=== PATIENT | female | born 1935 | race Caucasian/White ===

== ENCOUNTER → 2016-11-24 | Outpatient (CLI) | payer BC | END | disposition home or self-care (01) | LOC: C.LAB1850 12:16 | PROVIDERS: ATTEND Family Medicine | DX: R53.83 Other fatigue (principal); E78.5 Hyperlipidemia, unspecified; L29.9 Pruritus, unspecified; E55.9 Vitamin D deficiency, unspecified ==

== ENCOUNTER → 2017-02-23 | Outpatient (CLI) | payer BC | END | disposition home or self-care (01) | LOC: C.LAB 10:26 | PROVIDERS: ATTEND Nutritionist | DX: R53.81 Other malaise (principal) ==

== ENCOUNTER → 2017-04-14 | Outpatient (CLI) | payer BC ==
--- NOTE | 2017-04-15 13:41 | MAMMOGRAPHY REPORT ---
BILATERAL DIGITAL SCREENING MAMMOGRAM TOMOSYNTHESIS WITH CAD: 04/14/2017 CLINICAL HISTORY: Routine screening. TECHNIQUE: Breast tomosynthesis in addition to standard 2D mammography was performed. Current study was also evaluated with a Computer Aided Detection (CAD) system. COMPARISON: Comparison is made to exams dated: 10/24/2015 mammogram, 11/23/2014 mammogram, 11/22/2013 m ammogram, 11/19/2012 mammogram, 01/16/2012 mammogram, and 01/14/2011 mammogram - [facility] enter. BREAST COMPOSITION: The tissue of both breasts is heterogeneously dense, which may obscure small mas ses. FINDINGS: There are moderate vascular calcifications and scattered benign-appearing coarse and round microcalcifications in the breasts. Stable intramammary lymph nodes in the right upper outer quadran t. No new suspicious mass, architectural distortion or cluster of microcalcifications is seen. IMPRESSION: ACR BI-RADS CATEGORY 1: NEGATIVE There is no mammographic evidence of malignancy. A 1 year screening mammogram is recommended. The pa tient will receive written notification of the results. Approximately 10% of breast cancers are not detected with mammography. A negative mammographic report should not delay biopsy if a clinically suggestive mass is present. Adalgisa Gregorio M.D. ay/:04/14/2017 17:45:06 Carpet Weaver: Rashmi COREY(Theresa)(M), [facility] letter sent: Normal 1/2 BI-RADS Code: ACR BI-RADS Category 1: Negative
== END | disposition home or self-care (01) ==
LOC: C.MAMM 09:30
PROVIDERS: ATTEND Family Medicine
DX: Z12.31 Encounter for screening mammogram for malignant neoplasm of breast (principal)

== ENCOUNTER → 2017-05-25 | Outpatient (CLI) | payer BC ==
[2017-05-25 12:27] LABS: CHOLESTEROL/HDL RATIO 1.9
== END | disposition home or self-care (01) ==
LOC: C.LAB1850 10:41
PROVIDERS: ATTEND Physician Assistant
DX: I65.29 Occlusion and stenosis of unspecified carotid artery (principal); E78.5 Hyperlipidemia, unspecified

== ENCOUNTER → 2017-05-25 | Outpatient (CLI) | payer BC ==
--- NOTE | 2017-05-25 14:46 | MAMMOGRAPHY REPORT ---
ULTRASOUND OF BOTH BREASTS: 05/25/2017 CLINICAL HISTORY: 81-year-old woman presents for whole breast screening ultrasound given the personal history of dense breasts and family history of breast cancer = niece. COMPARISON: Comparison is made to exams dated: 04/14/2017 mammogram, 10/24/2015 ultrasound, 10/24/2015 mammogram, 03/06/2015 ultrasound, 11/23/2014 mammogram, and 01/11/2014 ultrasound - [facility]. FINDINGS: Real-time high-resolution sonographic evaluation was performed throughout each breast and both axillae. Morphologically normal lymph nodes are seen in both the right and left axilla, without evidence of suspicious adenopathy. The breast parenchymal echotexture is heterogeneousdense. Throughout the left breast, there is no e vidence of a discrete solid or cystic mass. Normal fibroglandular tissue and a calcified blood vesse l are identified. Within the right breast 6:00 axis, 1 cm from the nipple, there is a tiny oval para llel circumscribed anechoic cyst measuring 2.6 x 1.9 x 1.9 mm. In the 10:00 right breast, 1 cm from the nipple, an oval parallel circumscribed hypoechoic solid versus cystic mass versus focal duct ecta gabe is identified measuring 3.8 x 1.8 x 3.0 mm. This has a benign sonographic appearance, but a six- month follow-up targeted ultrasound is recommended to ensure stability. No other discrete solid or c ystic mass identified in the right breast. IMPRESSION: ACR-BI-RADS CATEGORY 3: PROBABLY BENIGN - FOLLOW-UP RECOMMENDED 1. There is a benign-appearing 3.8 mm circumscribed oval parallel solid versus cystic mass versus fo valdo duct ectasia in the 10:00 right breast, 1 cm from the nipple, for which a short interval follow-u p targeted ultrasound is recommended to ensure stability in 6 months. Right unilateral mammography c ould also be performed at that time in case there is an interval mammographic change. 2. No focal mass or sonographic evidence of malignancy in the left breast. 3. No suspicious right or left axillary lymphadenopathy. These results and recommendations were discussed with the patient at the time of the exam. Adalgisa Gregorio M.D. ay/:05/25/2017 10:26:11 Epoxy Fabrication Supervisor: Dr. Adalgisa Gregorio, [facility] letter sent: Follow Up Recommended 3 BI-RADS Code: ACR-BI-RADS Category 3: Probably Benign
== END | disposition home or self-care (01) ==
LOC: C.MAMM 09:23
PROVIDERS: ATTEND Obstetrics & Gynecology
DX: N63.10 Unspecified lump in the right breast, unspecified quadrant (principal)

== ENCOUNTER → 2017-07-21 | Outpatient (CLI) | payer BC ==
--- NOTE | 2017-07-21 11:14 | Discharge Instructions ---
Discharge Instructions Procedure Procedure Date: Jul 21, 2017. Reason for visit: Right Breast Mass. Discharge Discharge Date: Jul 21, 2017. Discharge Diagnosis: post right 10:00 breast ultrasound guided core biopsy Instructions Activity Recommendations: Additional Limitations (see below) Return to School/Work: no limitations Recommended Home Diet: No Limitations Provider Instructions: ACTIVITY RECOMMENDATIONS: * No lifting, pushing, pulling or exercising the affected side for three days. RETURN TO SCHOOL/WORK: * You may return to work/school after the procedure, but do not perform any strenuous activities for 24 to 48 hours. MEDICATIONS: * Tylenol (two 325 mg) every four to six hours if needed for mild pain (if not allergic to Tylenol). DIET: * Resume previous diet. SPECIAL CARE INSTRUCTIONS: * Keep biopsy site dry for 24 hours. May shower after 24 hours, but do not soak (bathe) incision. * May remove Tegaderm (plastic patch) tomorrow AFTER showering. * Leave the steri-strips on for one week. Allow the steri-strips to fall off by themselves. If not off after one week, you may remove them. You may place a Bandaid crosswise over the strips, if desired. * Apply ice 10 minutes on and 10 minutes off as needed. * Wear a bra at bedtime to sleep more comfortably for 2-3 days. * Your referring physician should have the results after approximately 5 to 7 business days. * Call for unusual bleeding, fever, drainage, etc or if you have any questions call [phone] during normal business hours or after hours call Dr Gregorio, . FOLLOW UP VISIT: Follow-up with Referring Physician as scheduled. Allergies Coded Allergies: ALLERGY2 (Verified Allergy, Unknown, 03/19/15) Ramsey Toribio Recommendations: Call your doctor if: * Temperature above 101 degrees * Pain not relieved by pain medicine ordered * There is increased drainage or redness from any incision * You have any unanswered questions or concerns. Your Doctors Instructions noted above were prepared by provider Adalgisa Gregorio. Patient Signature Section: Patient Instructions Signature Page Kristine Hollis Patient (or Guardian) Signature/Date: I have read and understand the instructions given to me by my caregivers. Caregiver/RN/Doctor Signature/Date: The above-named patient and/or guardian has received patient instructions on this date. + Original Patient Signature Page (only) stays with chart. Please make copy for patient.
--- NOTE | 2017-07-21 14:30 | MAMMOGRAPHY REPORT ---
ULTRASOUND GUIDED BIOPSY RIGHT BREAST: 07/21/2017 CLINICAL HISTORY: 82-year-old woman presents for biopsy of a small circumscribed parallel hypoechoic 3.8 mm mass in the 10:00 right breast identified on whole breast screening ultrasound. COMPARISON: Comparison is made to exams dated: 05/25/2017 ultrasound, 04/14/2017 mammogram, 6 ultrasound, 10/24/2015 mammogram, 03/06/2015 ultrasound, and 11/23/2014 mammogram - [facility]. PATIENT CONSENT: The procedure, risks and benefits were discussed with the patient and informed conse nt was obtained both verbally and in writing. Specific risks to this procedure include: bleeding, in fection, puncture of adjacent structure, nontarget biopsy, sampling error, pain, metal allergy and me dication reaction. PROCEDURE DESCRIPTION: A time out was performed and the right breast was agreed as the site of biopsy . The skin was prepped and draped in the usual sterile fashion. The 3.8 mm hypoechoic solid appearing parallel mass in the 10:00 right breast was chosen as the target for biopsy. Subcutaneous and intrap arenchymal 1% buffered lidocaine, with and without epinephrine, was administered as local anesthesia. A skin incision was made. Through the incision, 4 samples were taken with a 14 gauge Achieve biopsy device. A ribbon shaped metallic marker was placed at the biopsy site. Hemostasis was achieved after manual compression. The patient tolerated the procedure well and there was no immediate complication . The samples were sent to the pathology department in an appropriately labeled container. Postprocedure right CC and ML tomosynthesis images were obtained. There is a new ribbon-shaped biops y marker clip and no significant hematoma in the 10:00 middle one third of the right breast, at the s ite of the biopsied 3.8 mm hypoechoic mass identified on ultrasound. IMPRESSION: ULTRASOUND GUIDED BIOPSY Status post ultrasound guided core biopsy of an indeterminate 3.8 mm hypoechoic solid appearing mass in the 10:00 right breast, with biopsy marker placed at the site. The patient will receive notification of the biopsy results from her referring physician. Adalgisa Gregorio M.D. ay/:07/21/2017 11:29:03 Belt Buckle Maker: Phuong DOSHI)(Tiarra), [facility]
--- NOTE | 2017-07-21 14:30 | MAMMOGRAPHY REPORT ---
UNILATERAL RIGHT DIGITAL DIAGNOSTIC MAMMOGRAM TOMOSYNTHESIS: 07/21/2017 CLINICAL HISTORY: Indeterminate 3.8 mm hypoechoic circumscribed solid appearing mass in the 10:00 rig ht breast identified on whole breast screening ultrasound. Patient presents for ultrasound-guided co re needle biopsy. Please refer to report from right breast ultrasound guided core biopsy performed at the same time for full detail. IMPRESSION: POST PROCEDURE IMAGING FOR MARKER PLACEMENT Please refer to report from right breast ultrasound guided core biopsy performed at the same time for full detail. Approximately 10% of breast cancers are not detected with mammography. A negative mammographic report should not delay biopsy if a clinically suggestive mass is present. Adalgisa Gregorio M.D. ay/:07/21/2017 12:24:26 Journeyman Electrician Pv Installer: Phuong DOSHI)(Tiarra), [facility] BI-RADS Code: Post Procedure Imaging For Marker Placement
== END | disposition home or self-care (01) ==
LOC: C.MAMM 10:19
PROVIDERS: ATTEND Obstetrics & Gynecology
DX: D24.1 Benign neoplasm of right breast (principal)

== ENCOUNTER 2018-12-22 04:04 | Observation (INO) ==
[2018-12-22] MEDS ORDERED: ONDANSETRON INJ 2 MG/ML 2 ML VIAL IV STA (04:24)
[2018-12-22] MEDS ORDERED: MECLIZINE HCL 25 MG TAB PO STA (04:24)
[2018-12-22] MEDS ORDERED: methylPREDNISolone 125 MG/2 ML VIAL IV STA (04:26)
[2018-12-22] MEDS ORDERED: SODIUM CHLORIDE 0.9% 500 ML IV SCH (04:30)
[2018-12-22 04:34] LABS: Basophils # (auto) 0.05 K/uL (0-0.2); Basophils % (auto) 0.4 %; Eosinophils # (auto) 0.29 K/uL (0-0.5); Eosinophils % (auto) 2.5 %; Hematocrit (blood only) 40.7 % (37-47); Hemoglobin 13.5 g/dL (12.0-16.0); Immature Granulocytes # (auto) 0.12 K/uL (0.00-0.02); Lymphocytes # (auto) 4.34 K/uL (1.2-3.4); Lymphocytes % (auto) 37.7 %; Mean Corpuscular Hgb Conc 33.2 g/dL (32-36); Mean Corpuscular Volume 90.6 fL (80-100); Mean Platelet Volume 9.7 fL (7.4-10.4); Monocytes # (auto) 0.77 K/uL (0.11-0.59); Monocytes % (auto) 6.7 %; Neutrophils # (auto) 5.94 K/uL (1.4-6.5); Neutrophils % (auto) 51.7 %; Platelet Count 311 K/uL (130-400); RDW Coefficient of Variation 13.3 % (11.5-14.5); Red Blood Count 4.49 M/uL (4.2-5.4); White Blood Count 11.51 K/uL (4.8-10.8)
--- NOTE | 2018-12-22 04:40 | Emergency Department Note ---
Entered by Yayo Harrell acting as a scribe for History of Present Illness General Chief complaint: Vertigo Stated complaint: VERTIGO Time Seen by Provider: 12/22/18 04:14 Source: patient History of Present Illness Provider complaint: vertigo Onset (ago): hour(s) less than 1 Location: head Pain Consistency: + constant Relieved By: + none Exacerbated By: + movement Associated symptoms: + denies other symptoms and + nausea/vomiting; no cough and no headaches The patient is an 83 y/o female who presents to the emergency department for evaluation of constant vertigo that began prior to arrival. The patient states that she got up to use the restroom when she noticed that she was nauseated, felt like she had no control over her body, and that everything was spinning. The patients states that the patient has been occasionally off balance for the past year but its mostly when she stands up quickly. The patient denies a cough, the use of blood thinners, headache, and any other symptoms Home Medications Home Medications Medication Instructions Recorded Confirmed Type Move Free Joint Health 1 tab PO BID 05/05/18 12/22/18 History ascorbic acid (vitamin C) [Vitamin 1,500 mg PO DAILY PRN 05/05/18 12/22/18 History C] cholecalciferol (vitamin D3) 1,000 unit PO 3XWK 05/05/18 12/22/18 History [Vitamin D3] coenzyme Q10 [CoQ-10] 100 mg PO 3XWK 05/05/18 12/22/18 History diltiazem HCl [Cartia XT] 120 mg PO HS 05/05/18 12/22/18 History fluticasone propionate [Flonase 2 spray INTRANASAL DAILY PRN 05/05/18 12/22/18 History Allergy Relief] nitroglycerin 1 tab SUBLINGUAL UD PRN 05/05/18 12/22/18 History psyllium husk [Metamucil] 2 - 4 tab PO TID 05/05/18 12/22/18 History rosuvastatin 10 mg PO HS 05/05/18 12/22/18 History Women's 50 Plus Multivitamin 1 tab PO QAM 10/27/18 12/22/18 History aspirin 81 mg PO Q OTHER DAY 10/27/18 12/22/18 History cholecalciferol (vitamin D3) 5,000 unit PO 3XWK 10/27/18 12/22/18 History [Vitamin D3] Allergies Allergy/AdvReac Type Severity Reaction Status Date / Time aspirin AdvReac Mild Gastrointestinal Verified 12/22/18 06:49 Upset Past Med/Surg History Medical History Chronic obstructive pulmonary disease no inhalers Heart palpitations recent onset palpitations/dizziness - pt currently wearing holter monitor x 30 days - dr. 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 Sleep apnea cpap Surgical History History of breast biopsy left-benign History of cataract surgery RT History of colonoscopy History of esophagogastroduodenoscopy (EGD) History of tooth extraction wisdom teeth History of total abdominal hysterectomy and bilateral salpingo-oophorectomy History of umbilical hernia repair Hx of Moh's micrographic surgery for skin cancer x2 Family History Sister Family history of diabetes mellitus Brother Family hx of colon cancer Social History Preferred Language: Mongolian Communication Ability: Effective Beliefs That Will Affect Care: None Current Living Situation: Spouse Feels Safe at Home: Yes Smoking Status: Never smoker Second Hand Exposure: No Hx Alcohol Use: Yes Alcohol type: wine Hx Substance Use: No Review of Systems See HPI for pertinent positives & negatives. and A total of 10 systems reviewed and were otherwise negative Physical Exam Vital Signs Vital Signs - 24 hr 12/22/18 04:19 12/22/18 04:58 12/22/18 06:10 Temperature 36.4 C L Temperature Source Oral Sepsis Recent Fever Within 48 Hours No Sepsis New/Unexplained Change in Mental Status No Sepsis Action Taken by Nursing No Action Required Pulse Rate 67 Pulse Rate [Left Finger] 72 78 Pulse Rhythm Regular Pulse Strength Normal Respiratory Rate 18 18 18 Respiratory Effort / Characteristics Non-Labored Respiratory Depth Normal Respiratory Pattern Regular Blood Pressure 183/87 H Blood Pressure [Right Arm] 170/82 H 168/86 H Blood Pressure Mean 119 Blood Pressure Mean [Right Arm] 111 113 Blood Pressure Position Lying Blood Pressure Position [Right Arm] Sitting Sitting Pulse Oximetry 94 95 95 Oxygen Delivery Method Room Air Room Air Room Air Vital signs reviewed. General: Generally well-appearing in some discomfort. Clutching an emesis bag. HEENT: No scleral icterus, PERRLA, neck supple. Atraumatic. Positive horizontal nystagmus. Bilateral cerumen impaction. Cardiovascular: Regular rate and rhythm, no extra sounds. Pulmonary: Clear to auscultation bilaterally, normal work of breathing. Abdomen: Soft, nontender, nondistended, positive bowel sounds. Musculoskeletal: Atraumatic, no peripheral edema. Neurologic: Patient awake alert and oriented x 3, full strength in all 4 extremities. Cranial nerves 2 through 12 grossly intact. Skin: Warm, dry, no rash Course 0423: The patient was evaluated in room B09. A complete history and physical exam was performed. 0605: I checked on the patient and reviewed results with her. Administered Medications Discontinued Medications Diphenhydramine HCl (Benadryl) 25 mg IV NOW STA Stop: 12/22/18 05:22 Last Admin: 12/22/18 05:25 Dose: 25 mg Documented by: [id number] Sodium Chloride (Nss) 500 mls @ 999 mls/hr IV .Q31M ANILA Stop: 12/22/18 05:00 Last Infusion: 12/22/18 05:15 Dose: 0 mls/hr Documented by: [id number] Admin: 12/22/18 04:31 Dose: 999 mls/hr Documented by: [id number] Promethazine HCl 12.5 mg/ (Sodium Chloride) 50.5 mls @ 202 mls/hr IV NOW STA Stop: 12/22/18 06:17 Last Admin: 12/22/18 06:17 Dose: Not Given Documented by: [id number] Sodium Chloride (Nss 1000ml) 500 mls @ 999 mls/hr IV .Q31M ONE Stop: 12/22/18 06:33 Last Admin: 12/22/18 06:18 Dose: 999 mls/hr Documented by: [id number] Meclizine HCl (Antivert) 25 mg PO NOW STA Stop: 12/22/18 04:25 Last Admin: 12/22/18 04:32 Dose: 25 mg Documented by: [id number] Methylprednisolone (Solumedrol) 60 mg IV NOW STA Stop: 12/22/18 04:27 Last Admin: 12/22/18 04:31 Dose: 60 mg Documented by: [id number] Ondansetron HCl (Zofran) 4 mg IV NOW STA Stop: 12/22/18 04:25 Last Admin: 12/22/18 04:32 Dose: 4 mg Documented by: [id number] Promethazine HCl (Phenergan) Confirm Administered Dose 12.5 mg IV .STK-MED ONE Stop: 12/22/18 06:10 Last Admin: 12/22/18 06:17 Dose: 12.5 mg Documented by: [id number] Medical Decision Making Differential Diagnosis Differential diagnosis includes: benign positional vertigo, dehydration, hyp ovolemia, anemia, tumor, infection, hypoglycemia, electrolyte abnormalities, cardiac sources, intracerebral event, toxicologic, neurologic, as well as others were entertained. Medical Records Attestation: I reviewed the patient's medical records. Home Medications Current Medication List: was personally reviewed by me Laboratory Data Attestation: I reviewed the patient's lab results. Result diagrams: 12/22/18 04:15 12/22/18 04:15 Lab Results 12/22/18 12/22/18 Range/Units 04:15 04:15 WBC 11.51 H (4.8-10.8) K/uL RBC 4.49 (4.2-5.4) M/uL Hgb 13.5 (12.0-16.0) g/dL Hct 40.7 (37-47) % MCV 90.6 (80-100) fL MCH 30.1 (25-34) pg MCHC 33.2 (32-36) g/dL RDW Std Deviation 44.0 (36.4-46.3) fL RDW Coeff of Mandie 13.3 (11.5-14.5) % Plt Count 311 (130-400) K/uL MPV 9.7 (7.4-10.4) fL Immature Gran % (Auto) 1.0 % Neut % (Auto) 51.7 % Lymph % (Auto) 37.7 % Roane % (Auto) 6.7 % Eos % (Auto) 2.5 % Baso % (Auto) 0.4 % Immature Gran # (Auto) 0.12 H (0.00-0.02) K/uL Neut # (Auto) 5.94 (1.4-6.5) K/uL Lymph # (Auto) 4.34 H (1.2-3.4) K/uL Roane # (Auto) 0.77 H (0.11-0.59) K/uL Eos # (Auto) 0.29 (0-0.5) K/uL Baso # (Auto) 0.05 (0-0.2) K/uL Sodium 140 (136-145) mmol/L Potassium 3.4 L (3.5-5.1) mmol/L Chloride 110 H (98-107) mmol/L Carbon Dioxide 24 (21-32) mmol/L Anion Gap 6.0 (3-11) BUN 18 (7-18) mg/dl Creatinine 0.74 (0.6-1.2) mg/dl Est Cr Clr Drug Dosing 44.2 ml/min Est GFR ( Amer) 87.4 Est GFR (Non-Af Amer) 75.4 BUN/Creatinine Ratio 24.8 H (10-20) Glucose 145 H (70-99) mg/dl Calcium 8.5 (8.5-10.1) mg/dl Total Bilirubin 0.3 (0.2-1) mg/dl AST 21 (15-37) U/L ALT 35 (12-78) U/L Alkaline Phosphatase 67 (45-117) U/L Total Protein 6.8 (6.4-8.2) gm/dl Albumin 3.5 (3.4-5.0) gm/dl Globulin 3.3 (2.5-4.0) gm/dl Albumin/Globulin Ratio 1.1 (0.9-2) Imaging Data Radiologist's Impression: Radiology results as stated below per my review and the radiologist's interpretation: CT HEAD No priors No acute intracranial findings. Suspected chronic ischemic change. Blood Pressure Blood Pressure Findings: Normal blood pressure Blood Pressure Disposition: elevated BP felt to be situational MDM Narrative This patient was evaluated and appeared to be in no significant distress. IV access was obtained and laboratory work was drawn. Patient was placed on the desk monitor and found to be in a normal sinus rhythm. She was hydrated with normal saline solution, given 60 mg of IV Solu-Medrol, 4 mg of IV Zofran and 25 mg of p.o. meclizine. The patient was nauseated and nursing held the meclizine tablet. Patient was then given Benadryl 25 mg IV. Patient did stop retching however continued with nausea and dizziness. Patient was then given 12.5 mg of IV Phenergan. She was able to rest but felt much worse anytime she open her ey es. She did not feel comfortable attempting any p.o. fluid. CT imaging of the brain reveals chronic change but no acute process. The patient was discussed with Dr. Berrios of the hospitalist service will evaluate the patient for admission and further management. Impression & Plan BPV (benign positional vertigo), Nausea & vomiting Discharge Plan Visit Data Chief Complaint: Vertigo Stated Complaint: VERTIGO ED Provider: Guera Pritchard Discharge Problem: BPV (benign positional vertigo), Nausea & vomiting Forms Stand Alone Forms: [email or web address] Prescriptions Prescriptions: No Action cholecalciferol (vitamin D3) [Vitamin D3] 1,000 unit Tablet 1,000 unit PO 3XWK RF: 0 Move Free [email or web address] 750 mg-100 mg- 1.65 mg-108 mg Tablet 1 tab PO BID RF: 0 ascorbic acid (vitamin C) [Vitamin C] 500 mg Tablet 1,500 mg PO DAILY PRN (Reason: Cold Symptoms) RF: 0 nitroglycerin 0.4 mg Tablet, Sublingual 1 tab Sublingual UD PRN (Reason: Angina) RF: 0 diltiazem HCl [Cartia XT] 120 mg Capsule,Extended Release 24hr 120 mg PO HS RF: 0 fluticasone propionate [Flonase Allergy Relief] 50 mcg/actuation Addison,Suspension 2 spray INTRANASAL DAILY PRN (Reason: Allergy Symptoms) RF: 0 coenzyme Q10 [CoQ-10] 100 mg Capsule 100 mg PO 3XWK RF: 0 rosuvastatin 10 mg Tablet 10 mg PO HS RF: 0 psyllium husk [Metamucil] 0.4 gram Capsule 2 - 4 tab PO TID RF: 0 cholecalciferol (vitamin D3) [Vitamin D3] 5,000 unit Tablet 5,000 unit PO 3XWK RF: 0 aspirin 81 mg Tablet,Chewable 81 mg PO Q OTHER DAY RF: 0 Women's 50 Plus Multivitamin 400 mcg-500 mg calcium-20 mcg Tablet 1 tab PO QAM RF: 0 Discharge Problem: BPV (benign positional vertigo) Qualifiers: Laterality: unspecified laterality Qualified Code(s): H81.10 - Benign paroxysmal vertigo, unspecified ear Nausea & vomiting Qualifiers: Vomiting type: unspecified Vomiting Intractability: non-intractable Qualified Code(s): R11.2 - Nausea with vomiting, unspecified The scribe's documentation has been prepared under my direction and personally reviewed by me in its entirety. I confirm that the note above accurately reflects all work, treatment, procedures, and medical decision making performed by me.
[2018-12-22 04:51] LABS: Albumin Level 3.5 gm/dl (3.4-5.0); BUN Creatinine Ratio 24.8 (10-20); Calcium 8.5 mg/dl (8.5-10.1); Creatinine Clr Calc Pharmacy 44.2 ml/min; Est GFR (African American) 87.4; Est GFR (Non-African American) 75.4; Potassium 3.4 mmol/L (3.5-5.1)
[2018-12-22 04:54] LABS: Albumin Globulin Ratio 1.1 (0.9-2); Bilirubin,Total 0.3 mg/dl (0.2-1); Globulin 3.3 gm/dl (2.5-4.0); Total Protein 6.8 gm/dl (6.4-8.2)
[2018-12-22] MEDS ORDERED: DiphenhydrAMINE HCL 50 MG/ML VIAL IV STA (05:21)
[2018-12-22] MEDS ORDERED: PROMETHAZINE HCL 12.5 MG in SODIUM CHLORIDE 0.9% 50 ML IV STA (06:03)
[2018-12-22] MEDS ORDERED: SODIUM CHLORIDE 0.9% 1000ML 500 ML IV ONE (06:03)
[2018-12-22] MEDS ORDERED: PROMETHAZINE 12.5 MG/50.5 ML NSS IV ONE (06:09)
--- NOTE | 2018-12-22 06:50 | CT Scan Report ---
CT OF THE HEAD WITHOUT CONTRAST CLINICAL HISTORY: vertigo, imbalance COMPARISON STUDY: No previous studies for comparison. CT DOSE: 537.48 mGy.cm TECHNIQUE: Helical axial images of the head were obtained without IV contrast. Automated exposure con trol was utilized for the study. A dose lowering technique was utilized adhering to the principles o f ALARA. FINDINGS: No acute intracranial midline shift or mass effect is present. Ventricular system is unrema rkable for age. Basilar cisterns are patent. There are no extra-axial collections. White matter hypod ensity suggests small vessel disease. There are no findings to suggest acute dural sinus thrombosis o r acute territorial infarct. There are no significant calvarial abnormalities. Visualized portions of the sinuses and mastoid air cells are clear. IMPRESSION: No acute intracranial findings. Electronically signed by: Tommy Cruz M.D. 12/22/2018 6:48 AM
[2018-12-22] MEDS ORDERED: POTASSIUM CHLORIDE 20 MEQ TABCR PO STA (08:24)
--- NOTE | 2018-12-22 08:24 | History & Physical Report ---
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, but [place]-Hallpike negative here, need to rule out central cause -Admit to medical surgical floor with telemetry overnight for observation and further stroke work-up -Check MRI of the brain with and without contrast, MRA of the head, carotid Dopplers, echocardiogram with bubble study -Follow for arrhythmia on telemetry -Start Plavix 75 mg once daily -Continue Crestor 10 mg daily -Follow blood pressure-allow permissive hypertension -Checking globin A1c and lipid panel in the morning -Neurochecks -Consult neurology for further evaluation -Continue meclizine as needed and treatment for nausea as below (2) Nausea & vomiting: Likely related to vertigo Ruling out posterior circulation stroke as above -Continue Zofran as needed, Phenergan as needed, meclizine for vertigo as needed -Give IV fluids (3) Sleep apnea: Continue CPAP nightly (4) Hyperlipidemia: Continue rosuvastatin 10 mg -Check lipid panel in the morning (5) Multiple sclerosis: Reported as "benign" as per her evaluation at the [facility] many years ago Known to have periventricular white matter changes on previous MRI from 19 years ago Reports itching generalized for the last 2 years which she thinks is a symptom of MS but otherwise no symptoms Previously followed with [facility] neurology but was told did not need to follow-up and this was about 5 years ago (6) IBS (irritable bowel syndrome): Continue Metamucil daily (7) Restless leg syndrome: Uses a bar of soap between the sheets in her bed rather than medications which helps her-likely placebo effect but nonetheless helpful (8) Angina pectoris: Sees cardiology on a routine basis for suspected anginal equivalent with small vessel disease in the form of pain down bilateral arms at times with exertion Has had stress testing and echocardiogram in the past which she reports were normal -Continue diltiazem 30 mill grams p.o. twice daily (9) Hypokalemia: Likely from vomiting and poor p.o. intake -Replace with potassium chloride 40 M EQ p.o. x1 now that she is taking p.o. -Follow BMP in the morning (10) DVT prophylaxis: SCDs, Lovenox SQ Disposition-admit to observation on telemetry overnight for stroke work-up and improvement of vertigo nausea vomiting Likely discharge home tomorrow PT/OT consults placed Case management consult placed in case of home needs after discharge History of Present Illness Chief Complaint: Dizziness, intractable nausea and vomiting Primary Care Provider: Alexia Mejia MD This patient is an 83-year-old female with a history of suspected benign MS, migraine with aura only, ROSENDA on CPAP, hyperlipidemia, suspected small vessel coronary disease, IBS, RLS, OA, and skin cancer, who presents to the ER with intractable vertigo and nausea with vomiting that started at 245 this morning. She woke up to go to the bathroom and started having profuse nausea and vomiting and was having the room spinning around her. She was unable to walk and crawled back to her bedroom where her called for an ambulance. She could not get off the ground at all and was very weak. There was no blood in her vomit. She denies diarrhea but does have some hemorrhoids. Denies any abdominal pain. She denies headache. She denies numbness or tingling. She has never had anything like this before. She denies any recent cough or cold symptoms, denies any fevers or chills. She did recently returned from the beach but it was not a plane ride for travel. In the ER, her CT of the head showed small vessel disease which she has had present she reports for decades with her suspected benign MS, and her labs were fairly unremarkable otherwise except for mild leukocytosis which is likely a stress reaction. She was given IV methylprednisolone, IV Benadryl, and IV Ph energan and continued to have retching. By the time I saw her though, she reported feeling much improved with very minimal nausea and no residual vertigo. She will be admitted for rule out TIA/CVA and intractable vertigo with nausea and vomiting. Allergies Allergy/AdvReac Type Severity Reaction Status Date / Time aspirin AdvReac Mild Gastrointestinal Verified 12/22/18 06:49 Upset Home Medications Home Medications Medication Instructions Recorded Confirmed Type Move Free Joint Health 1 tab PO BID 05/05/18 12/22/18 History ascorbic acid (vitamin C) [Vitamin 1,500 mg PO DAILY PRN 05/05/18 12/22/18 History C] cholecalciferol (vitamin D3) 1,000 unit PO 3XWK 05/05/18 12/22/18 History [Vitamin D3] coenzyme Q10 [CoQ-10] 100 mg PO 3XWK 05/05/18 12/22/18 History fluticasone propionate [Flonase 2 spray INTRANASAL DAILY PRN 05/05/18 12/22/18 History Allergy Relief] nitroglycerin 1 tab SUBLINGUAL UD PRN 05/05/18 12/22/18 History psyllium husk [Metamucil] 2 - 4 tab PO TID 05/05/18 12/22/18 History rosuvastatin 10 mg PO HS 05/05/18 12/22/18 History Women's 50 Plus Multivitamin 1 tab PO QAM 10/27/18 12/22/18 History cholecalciferol (vitamin D3) 5,000 unit PO 3XWK 10/27/18 12/22/18 History [Vitamin D3] diltiazem HCl 30 mg PO BID 12/22/18 12/22/18 History Past Med/Surg History Medical History Angina pectoris Osteoarthritis Restless leg syndrome Heart palpitations recent onset palpitations/dizziness - pt currently wearing holter monitor x 30 days - dr. 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 Sleep apnea cpap Surgical History History of breast biopsy left-benign History of cataract surgery RT History of colonoscopy History of esophagogastroduodenoscopy (EGD) History of tooth extraction wisdom teeth History of total abdominal hysterectomy and bilateral salpingo-oophorectomy History of umbilical hernia repair Hx of Moh's micrographic surgery for skin cancer x2 Family History Sister Family history of diabetes mellitus Brother Family hx of colon cancer Father , Age 62 from a stroke Hypertension Stroke Mother Alzheimer disease Stroke Family/Other Alzheimer disease Social History Preferred Language: Cypriot Communication Ability: Effective Beliefs That Will Affect Care: None marital status: Current Living Situation: Spouse current occupational status: retired 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 [employer] Other Information That Helps Us Care for You: No Feels Safe at Home: Yes Safety Concerns: Feels Safe At This Time Smoking Status: Never smoker Second Hand Exposure: No Hx Alcohol Use: Yes Alcohol type: wine Hx Substance Use: No Review of Systems Review of Systems: All systems reviewed & are unremarkable except as noted in HPI & below Physical Exam Constitutional: WD/WN, vitals as above Eyes: PERRL, conjunctivae normal, anicteric sclerae ENMT: external ear and nose normal, oropharynx normal Neck: trachea midline, no thyromegaly Respiratory: normal respiratory effort, lungs clear to auscultation Cardiovascular: RRR, no murmur, no edema Gastrointestinal (Abdomen): normal bowel sounds, soft, nontender, no hepatosplenomegaly Musculoskeletal: Extremities: extremities normal to inspection; no cyanosis and no clubbing Skin: no rashes, warm and dry Neurologic: CN's II-XI intact bilaterally, deep tendon reflexes 2+ bilaterally, moves all extremities and awake; no focal motor deficits Speech / Cognition: normal speech Motor/Sensory: no tremor, no fasciculations, no pronator drift and no sensory deficit Coordination: normal popenl-rw-pauy test and normal rapid alternating movements [place]-Hallpike was negative to both sides Psychiatric: A+Ox3, euthymic affect Results & Data Vital Signs (Past 12 Hours) Vital Signs Temp Pulse Pulse Resp BP BP Pulse Ox 12/22/18 06:10 78 18 168/86 H 95 12/22/18 04:58 72 18 170/82 H 95 12/22/18 04:19 36.4 C L 67 18 183/87 H 94 Laboratory Results 12/22/18 12/22/18 Range/Units 04:15 04:15 WBC 11.51 H (4.8-10.8) K/uL RBC 4.49 (4.2-5.4) M/uL Hgb 13.5 (12.0-16.0) g/dL Hct 40.7 (37-47) % MCV 90.6 (80-100) fL MCH 30.1 (25-34) pg MCHC 33.2 (32-36) g/dL RDW Std Deviation 44.0 (36.4-46.3) fL RDW Coeff of Mandie 13.3 (11.5-14.5) % Plt Count 311 (130-400) K/uL MPV 9.7 (7.4-10.4) fL Immature Gran % (Auto) 1.0 % Neut % (Auto) 51.7 % Lymph % (Auto) 37.7 % [place] % (Auto) 6.7 % Eos % (Auto) 2.5 % Baso % (Auto) 0.4 % Immature Gran # (Auto) 0.12 H (0.00-0.02) K/uL Neut # (Auto) 5.94 (1.4-6.5) K/uL Lymph # (Auto) 4.34 H (1.2-3.4) K/uL [place] # (Auto) 0.77 H (0.11-0.59) K/uL Eos # (Auto) 0.29 (0-0.5) K/uL Baso # (Auto) 0.05 (0-0.2) K/uL Sodium 140 (136-145) mmol/L Potassium 3.4 L (3.5-5.1) mmol/L Chloride 110 H (98-107) mmol/L Carbon Dioxide 24 (21-32) mmol/L Anion Gap 6.0 (3-11) BUN 18 (7-18) mg/dl Creatinine 0.74 (0.6-1.2) mg/dl Est Cr Clr Drug Dosing 44.2 ml/min Est GFR ( Amer) 87.4 Est GFR (Non-Af Amer) 75.4 BUN/Creatinine Ratio 24.8 H (10-20) Glucose 145 H (70-99) mg/dl Calcium 8.5 (8.5-10.1) mg/dl Total Bilirubin 0.3 (0.2-1) mg/dl AST 21 (15-37) U/L ALT 35 (12-78) U/L Alkaline Phosphatase 67 (45-117) U/L Total Protein 6.8 (6.4-8.2) gm/dl Albumin 3.5 (3.4-5.0) gm/dl Globulin 3.3 (2.5-4.0) gm/dl Albumin/Globulin Ratio 1.1 (0.9-2) Diagnostic Findings CT head: CT OF THE HEAD WITHOUT CONTRAST CLINICAL HISTORY: vertigo, imbalance COMPARISON STUDY: No previous studies for comparison. CT DOSE: 537.48 mGy.cm TECHNIQUE: Helical axial images of the head were obtained without IV contrast. Automated exposure control was utilized for the study. A dose lowering technique was utilized adhering to the principles of ALARA. FINDINGS: No acute intracranial midline shift or mass effect is present. Ventricular system is unremarkable for age. Basilar cisterns are patent. There are no extra-axial collections. White matter hypodensity suggests small vessel disease. There are no findings to suggest acute dural sinus thrombosis or acute territorial infarct. There are no significant calvarial abnormalities. Visualized portions of the sinuses and mastoid air cells are clear. IMPRESSION: No acute intracranial findings. ECG Additional Comments: ECG with normal sinus rhythm with nonspecific ST changes, normal rate Code Status & VTE Plan Code Status Full code but does not desire prolonged life support if poor prognosis VTE Prophylaxis Plan VTE Prophylaxis will be ordered: Yes PG Care Time/CCT Total # of Minutes Spent Total Time Spent with Patient: Total time spent is greater than 50% in coordination of care (as documented) at patient's floor/unit and/or counseling patient: (1) Nausea & vomiting Vomiting Intractability: non-intractable Vomiting type: unspecified Qualified Code(s): R11.2 - Nausea with vomiting, unspecified
[2018-12-22] MEDS ORDERED: FLUTICASONE PROPIONATE NA SPR 16 GM BTL NAE PRN (09:12)
[2018-12-22] MEDS ORDERED: PHARMACIST DISCHARGE MED REC CONSULT PRN (09:12)
[2018-12-22] MEDS ORDERED: SODIUM CHLORIDE 0.9% 1000ML 1,000 ML IV SCH (09:12)
[2018-12-22] MEDS ORDERED: dilTIAZem HCL 30 MG TAB PO SCH (09:12)
[2018-12-22] MEDS ORDERED: NITROGLYCERIN SL 0.4 MG/TAB TAB SL PRN (09:12)
[2018-12-22] MEDS ORDERED: ONDANSETRON INJ 2 MG/ML 2 ML VIAL IV PRN (09:12)
[2018-12-22] MEDS ORDERED: ACETAMINOPHEN 325 MG TAB PO PRN (09:12)
[2018-12-22] MEDS ORDERED: MECLIZINE HCL 25 MG TAB PO PRN (09:12)
[2018-12-22] MEDS ORDERED: PROMETHAZINE HCL 12.5 MG in SODIUM CHLORIDE 0.9% 50 ML IV PRN (09:12)
[2018-12-22 10:09] LABS: Estimated Average Glucose 123 mg/dl; Hemoglobin A1C 5.9 % (4.5-5.6)
--- NOTE | 2018-12-22 11:21 | Magnetic Resonance Report ---
MR ANGIOGRAPHY OF THE [place] OF [place] NO CONTRAST CLINICAL HISTORY: Vertigo. Venous angioma. COMPARISON STUDY: None. A 3-D [id number] MR angiographic sequence of the [place] of [place] was performed. Both the source and projection images were reviewed. The examination is mildly limited from a technical standpoint. There is no evidence of major intracranial branch occlusion. There is no evidence of intracranial neel nosis. There are no lesions suspicious for aneurysm. There are suspected mild intracranial atheroscle rotic changes. IMPRESSION: 1. No MR angiographic evidence of aneurysm 2. No MR angiographic evidence of major intracranial branch occlusion Electronically signed by: Sanya Garnett M.D. 12/22/2018 11:19 AM
[2018-12-22] MEDS ORDERED: GADOBUTROL 65ML VIAL IV PRN (11:27)
--- NOTE | 2018-12-22 12:03 | Magnetic Resonance Report ---
MRI THE BRAIN WITH AND WITHOUT CONTRAST MULTIPLE SCLEROSIS PROTOCOL CLINICAL HISTORY: vertigo,r/o CVA,has h/o suspected MS COMPARISON STUDY: Head CT performed earlier today. TECHNIQUE: Utilizing a 1.5 Marianeal magnet, multiplanar, multiecho imaging of the brain was performed pr e and postcontrast administration according to the multiple sclerosis protocol. Intravenous injection of 5.5 cc of Gadavist was uneventful. FINDINGS: Note is made of a small 1 cm x 0.3 cm elongated focus of restricted diffusion within the le ft cerebellar hemisphere on axial image 5 of 44. This is hyperintense on the diffusion-weighted seque nce and hypointense on the ADC map. There is mild corresponding T2 signal. Ventricular system is unre markable for age. Basilar cisterns are patent. There are no extra-axial collections. Flow-voids for t he major intracranial vessels are present. No intracranial mass or pathologic enhancement is noted. 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 Multiple whit e matter T2 hyperintense foci are noted, including a 2.1 cm periventricular right frontal lobe focus. No abnormal enhancement is identified to suggest active demyelination. IMPRESSION: 1. Small 1 cm x 0.3 cm acute to subacute infarct within left cerebellar hemisphere. 2. No acute intracranial hemorrhage or mass effect. 3. Multiple white matter T2 hyperintense foci, including a 2.1 cm periventricular right frontal lobe focus. These findings could be seen in the setting of multiple sclerosis. Small vessel disease could appear similar. No evidence for active demyelination. Electronically signed by: Tommy Cruz M.D. 12/22/2018 12:02 PM
--- NOTE | 2018-12-22 12:24 | Ultrasound Report ---
US carotid doppler BI HISTORY: Mental status change suspected CVA COMPARISON: None. TECHNIQUE: Real-time, grayscale, and color Doppler sonography of the carotid arteries was performed. Imaging reviewed in the transverse and longitudinal planes. All measurements were calculated based on NASCET criteria. FINDINGS: Antegrade flow is seen in the bilateral vertebral arteries. The brachial pressures are hemodynamically similar. Mild plaque formation bilaterally The peak systolic velocity within the right ICA is 83. The right systolic ratio is 1.2. The peak systolic velocity within the left ICA is 106. The left systolic ratio is 1.1. IMPRESSION: No hemodynamically significant stenosis seen within the carotid arteries. Mild plaque formation bilat erally The above report was generated using voice recognition software. It may contain grammatical, syntax or spelling errors. Electronically signed by: Toño Pool M.D. 12/22/2018 12:23 PM
[2018-12-22] MEDS: PSYLLIUM 58.6% POWDER PACKET PO SCH ×2 (12:37→20:09)
[2018-12-22] MEDS: CLOPIDOGREL BISULFATE 75 MG TAB PO SCH ×2 (12:38→16:12)
[2018-12-22 12:51] LABS: Partial Thromboplastin Ratio 0.9; Partial Thromboplastin Time 23.3 Seconds (21.0-31.0)
--- NOTE | 2018-12-22 14:09 | Neurology Consultation ---
Date of Consultation December 22, 2018 Assessment & Plan (1) CVA (cerebral vascular accident): 1. MRI brain- left cerebellar infarct 2. carotid doppler with no significant stenosis 3. MRA head- no ANR or stenosis 4. PT/OT speech for discharge needs 5. start aspirin 81 mg and plavix 75 mg daily x 21 days then stop plavix and continue aspirin for a life time- not on daily aspirin prior to event 6. optimize HTN, HLD, DM LDL ,70 7. TTE- no ASD 8. 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 9. MS currently on no modulating medication- diagnosed in the early 60s, had central vision loss left eye was treated with ACTH IV and steroids. no other medications ever started. 10. needs CTA neck for posterior circulation evaluation follow up in 4-6 week with neurology Karlee Geller PAC schedule -requested Supervising Physician Co-Signing Physician Notes I have seen and discussed above patient with Dr Karlee Hunt, neurology. Pt seen and examined, hx of remote optic neuritis and I believe quiescent MS on no disease modifying agents. Sudden vertigo, n, v upon awakening at 3 am which lasted several hours. No other sx, no head/neck trauma, chirop manipulation or illness. Pt not on asa. MRI shows small l cerebellar acute to subacute infarct (reviewed). Exam , cn, motor, cerebellar sensory to LT intact. Mildly pos Romberg. CTA neck was ordered and was performed after I left the hospital. Report reviewed. 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 Based on the report suspect embolism from the L subclavian to a brach vessel of the L vert causing the above infarct. Rec heparin , fu CT in am, then consideration based on sx, size of infarct in starting an anticoagulant. I would not think there was a role for vascular intervention unless pt had recurrent em bolic event while on anticoagulants. I would use anticoagulant for 3-6 months, then repeat CTA to eval for resolution or organization and if that has occurred switch to asa monotx. Risk factor modification, rec asa 81 mg with anticoagulant. Janet communicated to me and then to Dr Munoz, hospitalist History of Present Illness Reason for Consultation: vertigo, r/o CVA Requesting Physician: Leticia Munoz MD Attending Physician: Leticia Munoz MD History of Present Illness Kristine is an 83 year old female with PMH of benign MS, migraine with aura only, ROSENDA on CPAP, HLD, suspected small vessel coronary disease, IBS, RLS, OA, and skin cancer, who presents to the ER with intractable vertigo and nausea with vomiting that started at 245 this morning. She woke up to go to the bathroom and started having profuse nausea and vomiting and was having the room spinning around her. She was unable to walk and crawled back to her bedroom where her called for an ambulance. She could not get off the ground at all and was very weak. There was no blood in her vomit. She states she has never had vertigo in the past. She did recently returned from the beach but it was not a plane ride for travel. CT of the head showed small vessel disease which she has had present she reports for decades with her suspected benign MS, and her labs were fairly unremarkable otherwise except for mild leukocytosis which is likely a stress reaction. She will be admitted for rule out TIA/CVA and intractable vertigo with nausea and vomiting. Currently she states she is feeling much better but was up walking with PT and after going to the bathroom she had an episode of vertigo but it was not as severe as previously. She did have some lunch but really limited what she ate be cause she was afraid of vomiting. She is complaining of a constant itching which she has had and has seen several dermatologists. Someone started her on gabapentin which she took for a month but it didn't help. denies CP, SOB, abdominal pain, one sided weakness, numbness tingling, vision changes, current N/V, headache. Allergies Allergy/AdvReac Type Severity Reaction Status Date / Time aspirin AdvReac Mild Gastrointestinal Verified 12/22/18 06:49 Upset Home Medications Home Medications Medication Instructions Recorded Confirmed Type Move Free Joint Health 1 tab PO BID 05/05/18 12/22/18 History ascorbic acid (vitamin C) [Vitamin 1,500 mg PO DAILY PRN 05/05/18 12/22/18 History C] cholecalciferol (vitamin D3) 1,000 unit PO 3XWK 05/05/18 12/22/18 History [Vitamin D3] coenzyme Q10 [CoQ-10] 100 mg PO 3XWK 05/05/18 12/22/18 History fluticasone propionate [Flonase 2 spray INTRANASAL DAILY PRN 05/05/18 12/22/18 History Allergy Relief] nitroglycerin 1 tab SUBLINGUAL UD PRN 05/05/18 12/22/18 History psyllium husk [Metamucil] 2 - 4 tab PO TID 05/05/18 12/22/18 History rosuvastatin 10 mg PO HS 05/05/18 12/22/18 History Women's 50 Plus Multivitamin 1 tab PO QAM 10/27/18 12/22/18 History cholecalciferol (vitamin D3) 5,000 unit PO 3XWK 10/27/18 12/22/18 History [Vitamin D3] diltiazem HCl 30 mg PO BID #0 tab 12/22/18 12/22/18 Rx Patient History Medical History Angina pectoris Osteoarthritis Restless leg syndrome Heart palpitations recent onset palpitations/dizziness - pt currently wearing holter monitor x 30 days - dr. 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 Sleep apnea cpap Surgical History History of breast biopsy left-benign History of cataract surgery RT History of colonoscopy History of esophagogastroduodenoscopy (EGD) History of tooth extraction wisdom teeth History of total abdominal hysterectomy and bilateral salpingo-oophorectomy History of umbilical hernia repair Hx of Moh's micrographic surgery for skin cancer x2 Family History Sister Family history of diabetes mellitus Brother Family hx of colon cancer Father , Age 62 from a stroke Hypertension Stroke Mother Alzheimer disease Stroke Family/Other Alzheimer disease Social History Preferred Language: Wolof Communication Ability: Effective Beliefs That Will Affect Care: None marital status: Current Living Situation: Spouse current occupational status: retired 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 [employer] Feels Safe at Home: Yes Smoking Status: Never smoker Second Hand Exposure: No Hx Alcohol Use: Yes Alcohol type: wine Hx Substance Use: No Physical Exam Physical Exam: Physical Exam: Constitutional: appearance over nourished, healthy and normal Ears, Nose, Mouth and Throat: mucous membranes moist, no injection and skin normal, eyes normal Cardiovascular: normal S-1 and S-2 and regular rate and rhythm Respiratory: clear to auscultation (CTA) and no rales, rhonchi or wheeze Musculoskeletal: no peripheral edema and good distal pulses Skin: no stigmata of neurocutaneous disease noted and normal and intact Eyes: extraocular muscles intact (EOMI) and pupils equal, round and reactive to light (PERRL) NEUROLOGIC EXAMINATION: Mental status: Alert and interactive Oriented to full date and location Oriented to person, can identify pen button thumb Speech fluent with no evidence of aphasia Cranial Nerves smile eye brow raise symmetric Reflexes: Deep tendon reflexes were symmetrically brisk Sensory: light or cool touch, vibration Coordination: finger to nose no bi pass Gait/Stance: Posture normal. sitting up in bed, walked with PT vertigo with walking in hough Motor: Negative for pronator drift of out stretched arms with eyes closed. Strength: biceps triceps hand k 9 police officer 5/5 bilaterally Results & Data Vital Signs (Past 12 Hours) Vital Signs Temp Pulse Pulse Resp BP BP Pulse Ox 12/22/18 09:33 36.8 C 74 20 148/72 H 96 12/22/18 08:53 84 20 141/71 H 94 12/22/18 06:10 78 18 168/86 H 95 12/22/18 04:58 72 18 170/82 H 95 12/22/18 04:19 36.4 C L 67 18 183/87 H 94 Laboratory Results Abnormal lab results 12/22/18 12/22/18 12/22/18 Range/Units 04:15 04:15 04:15 WBC 11.51 H (4.8-10.8) K/uL Immature Gran # (Auto) 0.12 H (0.00-0.02) K/uL Lymph # (Auto) 4.34 H (1.2-3.4) K/uL [place] # (Auto) 0.77 H (0.11-0.59) K/uL Potassium 3.4 L (3.5-5.1) mmol/L Chloride 110 H (98-107) mmol/L BUN/Creatinine Ratio 24.8 H (10-20) Glucose 145 H (70-99) mg/dl Hemoglobin A1c 5.9 H (4.5-5.6) % Diagnostic Findings CT head- No acute intracranial findings. MRI brain- Small 1 cm x 0.3 cm acute to subacute infarct within left cerebellar hemisphere. No acute intracranial hemorrhage or mass effect. Multiple white matter T2 hyperintense foci, including a 2.1 cm periventricular right frontal lobe focus. These findings could be seen in the setting of multiple sclerosis. Small vessel disease could appear similar. No evidence for active demyelination. carotid doppler-No hemodynamically significant stenosis seen within the carotid arteries. Mild plaque formation bilaterally MRA head-No MR angiographic evidence of aneurysm No MR angiographic evidence of major intracranial branch occlusion TTE- NO ASD, EF 55-60%
[2018-12-22] MEDS ORDERED: ASPIRIN 81 MG ECTAB PO STA (15:20)
[2018-12-22] MEDS ORDERED: OPTIRAY 320 125ml IV PRN (17:02)
--- NOTE | 2018-12-22 17:30 | CT Scan Report ---
CT angio neck wo/w con HISTORY: 83 years-old Female stroke in posterior circulation acute or subacute infarct of the left c erebellar hemisphere COMPARISON: Brain MRI of same day TECHNIQUE: CTA of the neck was obtained both with and without the use of 115 mL Optiray [address] All measurements were obtained according to NASCET criteria. A dose lowering technique was used c onsistent with the principals sunny ORTEGA. FINDINGS: Extensive mixed plaque formation about the thoracic aortic arch. 6 x 5 x 10 mm filling defect is note d about the proximal left subclavian artery (image 42 series 6 and also nicely seen on the sagittal i mages) suggestive of free-floating thrombus causing approximately 50% luminal narrowing. This is not occlusive. Remaining bilateral subclavian arteries appear patent. Bilateral common carotid arteries a re patent. Severe mixed plaque formation about the bilateral carotid bulbs results in less than 50% l uminal narrowing bilaterally. Mixed plaque formation about the cavernous and clinoid segments bilater ally without high-grade stenosis. The bilateral vertebral arteries are codominant and appear patent. The right vertebral artery termina alexa into the right PICA. Basilar artery appears diminutive. origin of the bilateral posterior c erebral arteries. No pneumothorax. Soft tissues are unremarkable. No adenopathy. Degenerative changes of the spine. Mas toid air cells are clear. Paranasal sinuses are also generally clear. IMPRESSION: 1. 6 x 5 x 10 mm filling defect about the proximal left subclavian artery is suggestive of a free-maulik ating thrombus which results in approximately 50% luminal narrowing. This places the patient at a hig h risk for acute ischemic stroke. 2. Mixed plaque formation about the bilateral carotid bulbs results in less than 50% luminal narrowin g bilaterally. 3. No aneurysm, dissection, high-grade stenosis or proximal branch occlusion identified. Findings were discussed with physician biology laboratory assistant Karlee Geller on 12/22/2018 at 5:24 PM. The above report was generated using voice recognition software. It may contain grammatical, syntax o r spelling errors. Electronically signed by: En Ferrera M.D. 12/22/2018 5:28 PM
[2018-12-22] MEDS ORDERED: Heparin IV Standard *NO* Bolus IV SCH (19:30)
[2018-12-22] MEDS ORDERED: Nursing to Pharmacy Communication ONE (19:40)
--- NOTE | 2018-12-22 19:44 | Discharge Summary ---
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 She woke up to go to the bathroom and started having profuse nausea and vomiting and was having the room spinning around her. She was unable to walk and crawled back to her bedroom where her called for an ambulance. She could not get off the ground at all and was very weak. There was no blood in her vomit. She denies diarrhea but does have some hemorrhoids. Denies any abdominal pain. She denies headache. She denies numbness or tingling. She has never had anything like this before. She denies any recent cough or cold symptoms, denies any fevers or chills. She did [place] from the beach but it was not a plane ride for travel. In the ER, her CT of the head showed small vessel disease which she has had present she reports for decades with her suspected benign MS, and her labs were fairly unremarkable otherwise except for mild leukocytosis which is likely a stress reaction. She was given IV methylprednisolone, IV Benadryl, and IV Phenergan and continued to have retching. By the time I saw her though, she reported feeling much improved with very minimal nausea and no residual vertigo. She will be admitted for rule out TIA/CVA and intractable vertigo with nausea and vomiting. 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 Discharge Exam same as physical exam from admission on same DOS Discharge Data Allergies Allergy/AdvReac Type Severity Reaction Status Date / Time aspirin AdvReac Mild Gastrointestinal Verified 12/22/18 06:49 Upset Consultations Neurology Ordered Studies 12/22/18 04:24 CT head/brain wo con Urgent 12/22/18 09:12 MR angio head wo con Stat MR brain MS wo/w con Routine US carotid doppler BI Routine 12/22/18 16:18 CT angio neck wo/w con Routine ECHO Hospital Course (1) Vertigo: Presented with acute onset of severe vertigo with intractable nausea and vomiting, no headache or any other signs of stroke Previous MRI did show periventricular white matter disease that was diagnosed as "benign multiple sclerosis" at [facility] many years ago Also has a known right parietal venous angioma and cerebellar tonsil ectopia -Admitted to medical surgical floor with telemetry for further stroke work-up MRI of the brain with and without contrast showed acute 1 x 0.3cm left cerebellar ischemic CVA MRA of the head negative Carotid Dopplers negative Echocardiogram with bubble study negative for interatrial shunt, and with normal LV function, no thrombus -no arrhythmia on telemetry -Started on Plavix 75 mg once daily and ASA 81mg once daily initially, however after subclavian artery thrombus seen, heparin gtt was started and antiplatelets were discontinued at advice of Stroke neuirologist at [facility]-Dr. George -Continue Crestor 10 mg daily and consider increasing to 20mg -Follow blood pressure-allow permissive hypertension-will hold diltiazem for BP< 160 systolic -received IVFs for hydration and to keep BP up -hgbA1C without evidence of DM, lipid panel controlled -Consult neurology for further evaluation-recommended CTA neck which showed left subclavian proximal thrombus that appeared free-floating, causing 50% luminal thrombus -no Vascular Surgery here available--> contacted [facility] Vascular Surgery and Stroke Neurology who recommended transfer to [facility] for further eval in case of need for Vascular intervention. Started heparin gtt -Continue treatment for nausea as below (2) CVA (cerebral vascular accident): as above (3) Subclavian artery thrombosis: as above (4) Nausea & vomiting: Likely related to CVA-improved prior to discharge -Continue Zofran as needed, Phenergan as needed -Gave IV fluids (5) Sleep apnea: Continue CPAP nightly (6) Hyperlipidemia: Continue rosuvastatin 10 mg lipid panel well controlled (7) Multiple sclerosis: Reported as "benign" as per her evaluation at the [facility] many years ago Known to have periventricular white matter changes on previous MRI from 19 years ago Reports itching generalized for the last 2 years which she thinks is a symptom of MS but otherwise no symptoms Previously followed with [facility] neurology but was told did not need to follow-up and this was about 5 years ago MRI brain here again with white matter changes (8) IBS (irritable bowel syndrome): Continue Metamucil daily (9) Restless leg syndrome: Uses a bar of soap between the sheets in her bed rather than medications which helps her-likely placebo effect but nonetheless helpful (10) Angina pectoris: Sees cardiology on a routine basis for suspected anginal equivalent with small vessel disease in the form of pain down bilateral arms at times with exertion Has had stress testing and echocardiogram in the past which she reports were normal -Continue diltiazem 30 mill grams p.o. twice daily with hold parameters for permissive HTN (11) Hypokalemia: Likely from vomiting and poor p.o. intake -Replaced with potassium chloride 40 M EQ p.o. x1 -Follow BMP in the morning (12) DVT prophylaxis: SCDs, Lovenox SQ provided initially -then placed on heparin gtt Disposition-transferred to [facility] for further evaluation of subclavian artery thrombus in the setting of acute CVA Accepting Physician is Stroke Neurologist Dr. George Greatly appreciate your taking this patient on your service Total Time Total Time Spent Total Time Spent (In Minutes): >30 min Total Time Includes: Examination of the Patient, Discharge Planning, Medication Reconciliation and Communication With Other Providers (Neurology) Discharge Plan Discharge Items Patient Disposition: Transfer Acute Care Hospital Reason For Visit: VERTIGO, R/O CVA Discharge Diagnosis: Acute CVA, Left subclavian artery thrombus Condition: Fair Discharge Goals: Diagnostic testing, Improve disease control, Learn about illness and Therapeutic intervention Activity: As commented below Lifting: None Bathing: No limitations Exercise/Sports: Rest today Non-emergency contact: Primary Care Provider Call non-emergency contact if: you have any medication questions and your symptoms worsen Follow-up/Referrals: Alexia Mejia MD [Primary Care Provider] - Diet: [facility] Provider Instructions: Transferred to [facility] Prescriptions: Continued cholecalciferol (vitamin D3) [Vitamin D3] 1,000 unit Tablet 1,000 unit PO 3XWK RF: 0 Move Free [facility] 750 mg-100 mg- 1.65 mg-108 mg Tablet 1 tab PO BID RF: 0 ascorbic acid (vitamin C) [Vitamin C] 500 mg Tablet 1,500 mg PO DAILY PRN (Reason: Cold Symptoms) RF: 0 nitroglycerin 0.4 mg Tablet, Sublingual 1 tab Sublingual UD PRN (Reason: Angina) RF: 0 fluticasone propionate [Flonase Allergy Relief] 50 mcg/actuation [place],Suspension 2 spray INTRANASAL DAILY PRN (Reason: Allergy Symptoms) RF: 0 coenzyme Q10 [CoQ-10] 100 mg Capsule 100 mg PO 3XWK RF: 0 rosuvastatin 10 mg Tablet 10 mg PO HS RF: 0 psyllium husk [Metamucil] 0.4 gram Capsule 2 - 4 tab PO TID RF: 0 cholecalciferol (vitamin D3) [Vitamin D3] 5,000 unit Tablet 5,000 unit PO 3XWK RF: 0 Women's 50 Plus Multivitamin 400 mcg-500 mg calcium-20 mcg Tablet 1 tab PO QAM RF: 0 diltiazem HCl 30 mg tablet 30 mg PO BID Qty: 0 RF: 0 Stand-Alone Forms: Replaced By [facility] Discharge Orders: Discharge Order (Routine); Ordered 12/22/18 Ordered By: Leticia Munoz Admission Data Admit Date/Time: 12/22/18 08:20 Attending Provider: Leticia Munoz Admit Provider: Leticia Munoz Primary Care Provider: Alexia Mejia Other Providers: Tanner Berrios ; Karlee Hunt Service: Telemetry Medical Other Pending Studies at Discharge: No
[2018-12-22] MEDS ORDERED: Heparin Adult STANDARD Wt-Based Dextrose 5% 25,000 units/500 mL IV SCH (20:00)
[2018-12-22] MEDS ORDERED: ENOXAPARIN INJ 40 MG/0.4 ML SYR SQ SCH (21:00)
[2018-12-22] MEDS ORDERED: ROSUVASTATIN CALCIUM 10 MG TAB PO SCH (21:00)
[2018-12-23] MEDS ORDERED: ASPIRIN 81 MG ECTAB PO SCH (09:00)
--- NOTE | 2019-01-05 13:38 | Coding Query ---
A supporting diagnosis is required for the test/procedure performed on this patient in order for us to be reimbursed by the patient's insurance. Please provide a supporting diagnosis for the following test/procedure listed below next to the test name along with your signature. *If there is no additional diagnosis for this patient that would support the following test/procedure please document that below next to the test/procedure. Test(s)/Procedure(s) that require a supporting diagnosis: Extracranial Bilat Study-- ARE YOU REFERRING TO A CAROTID DOPPLERS? DIAGNOSIS: Acute CVA Provider Signature: ___Leticia Munoz M.D. Date: __01/07/19 Thank you Juhi Boyer [facility] Information Management Once completed, please kindly fax back to [phone] For questions please call [phone] [facility] CENTERAleksandar
== END 2018-12-22 22:35 | disposition short-term general hospital (02) ==
LOC: ED 04:04 → 2N 04:04